=== PATIENT | male | born 1975 | race Caucasian/White ===

== ENCOUNTER 2018-09-17 08:28 | Day surgery (SDC) | payer BC, OTHER ==
[2018-09-17] VITALS (9 sets, daily range): BP systolic 110–143; BP diastolic 71–98
[~2018-09-17] VITALS: Ht 185.4 cm; Wt 95.3 kg
--- NOTE | 2018-09-17 09:02 | Anethesia Preoperative Eval ---
Anesthesia Pre-op PMH/ROS General Date of Evaluation: Sep 17, 2018 Anesthesiologist: Eben ASA Score: ASA 2 Mallampati Score Class I : Soft palate, uvula, fauces, pillars visible Class II: Soft palate, uvula, fauces visible Class III: Soft palate, base of uvula visible Class IV: Only hard plate visible Mallampati Classification: Class III Surgeon: Sue Diagnosis: Diarrhea Surgical Procedure: Colonoscopy Anesthesia History: none Family History: no anesthesia problems Allergies: Coded Allergies: No Known Allergies (Unverified , 09/17/18) Medications: see eMAR Patient NPO?: Yes NPO Date: Sep 16, 2018 NPO Time: 22:00 Past Medical History Cardiovascular: Denies: HTN, CAD, TN, valve dz, arrhythmia, other Pulmonary: Denies: asthma, COPD, PIPO, other Gastrointestinal/Genitourinary: Reports: other - diarrhea; Denies: GERD, CRI, ESRD Neurologic/Psychiatric: Reports: depression/anxiety; Denies: dementia, CVA, TIA, other Endocrine: Denies: DM, hypothyroidism, steroids, other HEENT: Denies: cataract (L), cataract (R), glaucoma, FLANDREAU (L), FLANDREAU (R), other Hematology/Immune: Denies: anemia, DVT, bleeding disorder, other Musculoskeletal/Integumentary: Denies: OA, RA, DJD, DDD, edema, other PSxH Narrative: Denies Anesthesia Pre-op Phys. Exam Physician Exam see chart Constitutional: NAD Cardiovascular: RRR Respiratory: CTA Airway Exam Mallampati Score: Class III MO: limited ROM: limited Anesthesia Pre-op A/P Labs see chart Studies Pre-op Studies: EKG - sr Risk Assessment & Plan Assessment: ASA II Plan: MAC Status Change Before Surgery: No Pre-Antibiotics Drug: N/A Stacia Andrea MD Sep 17, 2018 09:02
[2018-09-17] MEDS ORDERED: BUPROPION XL300 MG ORAL (09:06)
[2018-09-17] MEDS ORDERED: MODAFINIL100 MG ORAL (09:06)
[2018-09-17] MEDS ORDERED: TRUVADA 200 MG1 EAC1 ORAL (09:06)
[2018-09-17] MEDS ORDERED: LR 1000ml 1,000 ML IVLG SCH (09:33)
[2018-09-17] MEDS ORDERED: LORazepam Inj 2mg/ml 1ml IV PRN (09:45)
[2018-09-17] MEDS ORDERED: DiphenhydrAMINE 50mg/ml Inj IVP PRN (09:45)
[2018-09-17] MEDS ORDERED: Midazolam 2mg/2ml Inj IVP PRN (09:45)
--- NOTE | 2018-09-17 09:53 | Pre-Procedure Note/Attestation ---
Pre-Procedure Note/Attestation Complete Prior to Procedure Planned Procedure: not applicable Procedure Narrative: colonoscopy Indications for Procedure Pre-Operative Diagnosis: diarrhea Attestation I attest that I discussed the nature of the procedure; its benefits; risks and complications; and alternatives (and the risks and benefits of such alternatives ), prior to the procedure, with the patient (or the patient's legal claim representative). I attest that, if there was a reasonable possibility of needing a blood transfusion, the patient (or the patient's legal claim representative) was given the [facility] standardized written summary, pursuant to the Jose Mir Blood Safety Act ([place] Health and Safety Code # 1645, as amended). I attest that I re-evaluated the patient just prior to the surgery and that there has been no change in the patient's H&P, except as documented below: Jackson Rogers MD Sep 17, 2018 09:53
--- NOTE | 2018-09-17 09:55 | Short Stay Surgery H&P ---
History of Present Illness History of Present Illness Chief Complaint diarrhea HPI Wyatt Esteves is a 43 year old male who was admitted on for Diarrhea Patient History Allergies: Coded Allergies: No Known Allergies (Unverified , 09/17/18) PAST MEDICAL HISTORY: (1) astma (2) Depression Medication History Scheduled Bupropion Hcl* (Wellbutrin*), 300 MG ORAL DAILY, (Reported) Emtricitabine/Tenofovir 200-300MG* (Truvada 200-300MG*), 1 TAB ORAL DAILY, ( Reported) Modafinil* (Provigil), 200 MG ORAL DAILY, (Reported) Review of Systems Cardiovascular: Reports: no symptoms Respiratory: Reports: no symptoms Skeletal: Reports: no symptoms Gastrointestinal: Reports: see HPI Genitourinary: Reports: no symptoms Neurologic: Reports: no symptoms Endocrine: Reports: no symptoms Hematologic: Reports: no symptoms Physical Exam Vital Signs Last Vital Signs Date Time Temp Pulse Resp B/P (MAP) Pulse Ox O2 Delivery O2 Flow Rate FiO2 09/17/18 09:10 Room Air 09/17/18 09:08 97.4 83 18 130/89 98 Skin: normal HENT: normal Heart: normal Lungs: normal Abdomen: normal Extremities: normal Plan Plan of Care colonoscopy Attestation Are the patient's medical conditions optimized for surgery? Attestation Response: yes Jackson Rogers MD Sep 17, 2018 09:54
[2018-09-17] MEDS ORDERED: LR 1000ml ONE (10:00)
[2018-09-17] MEDS ORDERED: Lidocaine 1% MPF 10mg/ml 5ml ONE (10:00)
[2018-09-17] MEDS ORDERED: Propofol 200mg/20ml IV ONE (10:00)
--- NOTE | 2018-09-17 10:38 | Endoscopy Procedure Note ---
Endoscopy Procedure Note General Indication for Procedure: disrrhea Procedures Performed: colonoscopy Operative Findings/Diagnosis: hemorrhoids Specimen: yes Pt Tolerated Procedure Well: Yes Estimated Blood Loss: none Anesthesia Anesthesiologist: joaquín Anesthesia: MAC Inserted Devices Implant(s) used?: No Quality Quality of Bowel Preparation: Good Did scope reach the cecum?: Yes Was there any complications?: No GI Core Measures 50 yrs or older w/o bx or poly: No 10yrs. F/U not recommended: Yes If not recommended, why?: Above average risk 10 yrs. F/U needed: Yes 18 years or older w/prev. colo: No Jackson Rogers MD Sep 17, 2018 10:38
--- NOTE | 2018-09-17 10:44 | Immediate Post-Op Evaluation ---
Immediate Post-Op Evalulation Immediate Post-Op Evalulation Procedure: Colonoscopy Date of Evaluation: Sep 17, 2018 Time of Evaluation: 10:47 IV Fluids: 500 Blood Products: 0 Estimated Blood Loss: 0 Urinary Output: 0 Blood Pressure Systolic: 129 Blood Pressure Diastolic: 94 Pulse Rate: 81 Respiratory Rate: 16 O2 Sat by Pulse Oximetry: 99 Temperature (Fahrenheit): 97.2 Pain Score (1-10): 0 Nausea: No Vomiting: No Complications 0 Patient Status: awake, reacts, patent, none Hydration Status: adequate Drug: N/A Stacia Andrea MD Sep 17, 2018 10:44
--- NOTE | 2018-09-17 10:46 | 48 Hour Post Anesthesia Eval ---
Post Anesthesia Evaluation Procedure: Colonoscopy Date of Evaluation: Sep 17, 2018 Airway: patent Nausea: No Vomiting: No Pain Intensity: 0 Hydration Status: adequate Cardiopulmonary Status: at baseline Mental Status/LOC: patient returned to baseline Post-Anesthesia Complications: 0 Follow-up care needed: ready to discharge Stacia Andrea MD Sep 17, 2018 10:46
--- NOTE | 2018-09-17 16:30 | Procedure Note ---
DATE OF PROCEDURE: 09/17/2018 SURGEON: Jackson Rogers M.D. PROCEDURE: Colonoscopy with biopsy. ANESTHESIA: Per Dr. Teradwell. INSTRUMENT: Olympus adult flexible colonoscope. INDICATION: Chronic diarrhea. REASON FOR PROCEDURE: The procedure, risks, benefits, and possible consequences, including hemorrhage, aspiration, perforation and infection, and alternative treatments, were explained to the patient/legal guardian by Dr. Jackson Rogers and the patient/legal guardian understood and accepted these risks. DESCRIPTION OF PROCEDURE: After informed consent was obtained and the patient was adequately sedated, first rectal exam was performed, which was normal. Then, the scope was advanced from the cecum, then subsequently terminal ileum. Quality of prep was very good. The patient had a very bumpy mucosa in the terminal ileum. Biopsy from this area was obtained to rule out Crohn disease. The rest of the colonic examination grossly looked within normal limits. Random biopsy of the right and left colon was obtained to rule out microscopic colitis. Retroflexion of the rectum showed evidence of medium-sized nonbleeding internal hemorrhoids. SUMMARY OF FINDINGS: 1. Bumpy looking mucosa in the terminal ilium with some inflammatory changes, status post biopsy to rule out Crohn disease. 2. Status post biopsy of the right and left colon to evaluate for microscopic colitis. 3. Internal hemorrhoids. RECOMMENDATIONS: Follow up biopsy results and treat accordingly. Jackson Rogers M.D. DR: JESSICA JOB#: [id number] CC:
== END 2018-09-17 12:00 | disposition home or self-care (01) ==
LOC: GAS 08:28
DX: K52.9 Noninfective gastroenteritis and colitis, unspecified (principal); K64.8 Other hemorrhoids; F32.9 Major depressive disorder, single episode, unspecified; F41.9 Anxiety disorder, unspecified; A69.8 Other specified spirochetal infections; Z79.899 Other long term (current) drug therapy
CPT/HCPCS: 45380; J2704; 94003; 94150